=== PATIENT | female | born 1980 | race Hispanic/Latino ===

== ENCOUNTER 2018-05-01 19:51 | Emergency (ER) | payer SELFPAY ==
--- NOTE | 2018-05-01 21:06 | EDPHYS ---
Physician Documentation [facility] Name: Lourdes Garner Age: 37 yrs Sex: Female : 1980 Arrival Date: 05/01/2018 Time: 19:52 Bed 27 Private MD: ED Physician Teodoro Omer HPI: 05/01 20:45 This 37 yrs old Female presents to ER via Ambulatory with complaints of Flu cp Symptoms. 20:45 The patient or guardian reports cough, that is intermittent, flu symptoms, low-grade cp fever, body aches, headache. 20:45 Onset: The symptoms/episode began/occurred today. Associated signs and symptoms: cp Pertinent positives: rhinorrhea, sore throat, Pertinent negatives: diarrhea, vomiting. 20:45 Patient reports was diagnosed with flu yesterday. 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 - Social history:: Smoking status: Patient/guardian denies using tobacco. - Ebola Screening: : No symptoms or risks identified at this time. ROS: 20:55 Constitutional: Positive for body aches, Negative for fever, poor PO intake. cp 20:55 Eyes: Negative for injury, pain, redness, and discharge. cp 20:55 ENT: Positive for rhinorrhea, sore throat, Negative for drainage from ear(s), ear pain, difficulty swallowing, difficulty handling secretions. 20:55 Cardiovascular: Negative for chest pain. 20:55 Respiratory: Positive for cough, with no reported sputum, Negative for wheezing. 20:55 Abdomen/GI: Negative for abdominal pain, vomiting, diarrhea, constipation. 20:55 : Negative for urinary symptoms. 20:55 Skin: Negative for cellulitis, rash. 20:55 Neuro: Positive for headache, Negative for altered mental status, weakness. 20:55 All other systems are negative. Exam: 20:57 Constitutional: The patient appears in no acute distress, alert, awake, non-toxic, well cp developed, well nourished. 20:57 Head/Face: Normocephalic, atraumatic. cp 20:57 Eyes: Periorbital structures: appear normal, Conjunctiva: normal, no exudate, no injection, Lids and lashes: appear normal, bilaterally. 20:57 ENT: External ear(s): are unremarkable, Ear canal(s): are normal, clear, TM's: bulging, is not appreciated, bilaterally, erythema, is not appreciated, bilaterally, Nose: nasal drainage, that is clear, Mouth: Lips: moist, Oral mucosa: moist, Posterior pharynx: Airway: no evidence of obstruction, patent, Tonsils: are normal in appearance, swelling, is not appreciated, erythema, that is mild, exudate, is not appreciated. 20:57 Neck: ROM/movement: is normal, is supple, without pain, no range of motions limitations, no meningismus, no nuchal rigidity. 20:57 Chest/axilla: Inspection: normal, Palpation: is normal, no crepitus, no tenderness. 20:57 Cardiovascular: Rate: normal, Rhythm: regular. 20:57 Respiratory: the patient does not display signs of respiratory distress, Respirations: normal, no use of accessory muscles, no retractions, no splinting, no tachypnea, labored breathing, is not present, Breath sounds: are clear throughout, no decreased breath sounds, no stridor, no wheezing. 20:57 Abdomen/GI: Inspection: abdomen appears normal. 20:57 Skin: cellulitis, is not appreciated, no rash present. Vital Signs: 20:05 BP 144 / 78; Pulse 87; Resp 18; Temp 98.4(O); Pulse Ox 99% on R/A; Weight 93.44 kg (R); lp1 Height 5 ft. 4 in. (162.56 cm); Pain 7/10; 21:01 BP 140 / 75; Pulse 85; Resp 18; Pulse Ox 99% on R/A; ca1 20:05 Body Mass Index 35.36 (93.44 kg, 162.56 cm) lp1 MDM: 20:40 Patient medically screened. cp 21:00 Differential Diagnosis: Bronchitis Influenza Upper Respiratory Infection Pharyngitis cp Otitis Media. 21:05 Data reviewed: vital signs, nurses notes, lab test result(s), and as a result, I will cp discharge patient. 21:05 Counseling: I had a detailed discussion with the patient and/or guardian regarding: the cp historical points, exam findings, and any diagnostic results supporting the discharge/admit diagnosis, lab results, to return to the emergency department if symptoms worsen or persist or if there are any questions or concerns that arise at home. Response to treatment: the patient's symptoms have mildly improved after treatment, and as a result, I will discharge patient. 05/01 20:07 Order name: Flu lp1 05/01 20:10 Order name: Strep lp1 05/01 20:54 Order name: Throat Culture EDMS Administered Medications: 20:55 Drug: Zofran 4 mg Route: PO; ca1 21:22 Follow up: Response: Nausea is decreased rv 20:57 Drug: Tylenol 1000 mg Route: PO; ca1 21:22 Follow up: Response: Temperature is decreased rv 21:20 Drug: Tamiflu 75 mg Route: PO; rv 21:20 Follow up: Response: Medication administered at discharge. rv Disposition: 05/01/18 21:05 Discharged to Home. Impression: Flu like illness. - Condition is Stable. - Discharge Instructions: Influenza, Adult. - Prescriptions for Zofran 4 mg Oral Tablet - take 1 tablet by ORAL route every 12 hours As needed; 20 tablet. Tamiflu 75 mg Oral Capsule - take 1 tablet by ORAL route every 12 hours for 5 days; 10 tablet. - Medication Reconciliation Form, Thank You Letter, Antibiotic Education, Prescription Opioid Use form. - Follow up: Private Physician; When: 2 - 3 days; Reason: Worsening of condition. - Problem is new. - Symptoms have improved. Addendum: 05/04/2018 07:20 Co-signature as Attending Physician, Teodoro Omer MD I agree with the assessment and c escalera plan of care. Signatures: Dispatcher [employer] EDOH Teodoro Omer MD MD cha Pena, Laura RN RN lp1 Teodoro Underwood PA PA cp Vicente, Ronaldo, RN RN rv Deanna Herrera RN RN ca1 Corrections: (The following items were deleted from the chart) 05/01 21:25 21:05 05/01/2018 21:05 Discharged to Home. Impression: Flu like illness. Condition is ca1 Stable. Forms are Medication Reconciliation Form, Thank You Letter, Antibiotic Education, Prescription Opioid Use. Follow up: Private Physician; When: 2 - 3 days; Reason: Worsening of condition. Problem is new. Symptoms have improved. cp
--- NOTE | 2018-05-01 21:06 | ER ---
Nurse's Notes [facility] Name: Lourdes Garner Age: 37 yrs Sex: Female : 1980 Arrival Date: 05/01/2018 Time: 19:52 Bed 27 Private MD: Diagnosis: Flu like illness Presentation: 05/01 20:03 Presenting complaint: Patient states: was diagnosed for the flu yesterday, "I'm lp1 worried I may have the flu"; body aches, headache, nausea, vomited x 1, diarrhea that began today;. Transition of care: patient was not received from another setting of care. Onset of symptoms was May 01, 2018. Risk Assessment: Do you want to hurt yourself or someone else? Patient reports no desire to harm self or others. Initial Sepsis Screen: Does the patient meet any 2 criteria? No. Patient's initial sepsis screen is negative. Does the patient have a suspected source of infection? No. Patient's initial sepsis screen is negative. Care prior to arrival: None. 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 - Social history:: Smoking status: Patient/guardian denies using tobacco. - Ebola Screening: : No symptoms or risks identified at this time. Screenin:07 Abuse screen: Denies threats or abuse. Denies injuries from another. Nutritional lp1 screening: No deficits noted. Tuberculosis screening: No symptoms or risk factors identified. Fall Risk None identified. Assessment: 20:10 General: Appears in no apparent distress. comfortable, Behavior is calm, appropriate ca1 for age. Pain: Complains of pain in throat Pain currently is 4 out of 10 on a pain scale. Neuro: Level of Consciousness is awake, alert, obeys commands, Oriented to person, place, time, situation. Cardiovascular: Heart tones S1 S2 present Capillary refill < 3 seconds Patient's skin is warm and dry. Respiratory: Reports cough that is non-productive, Airway is patent Respiratory effort is even, unlabored, Respiratory pattern is regular, symmetrical, Breath sounds are clear bilaterally. GI: Abdomen is flat, non-distended, Bowel sounds present X 4 quads. Abd is soft and non tender X 4 quads. Reports nausea. : No signs and/or symptoms were reported regarding the genitourinary system. EENT: No signs and/or symptoms were reported regarding the EENT system. Derm: Skin is intact, is healthy with good turgor, Skin is pink, warm \\T\\ dry. Musculoskeletal: Circulation, motion, and sensation intact. Capillary refill < 3 seconds. 21:01 Reassessment: Patient appears in no apparent distress at this time. Patient and/or ca1 family updated on plan of care and expected duration. Pain level reassessed. Patient is alert, oriented x 3, equal unlabored respirations, skin warm/dry/pink. Vital Signs: 20:05 BP 144 / 78; Pulse 87; Resp 18; Temp 98.4(O); Pulse Ox 99% on R/A; Weight 93.44 kg (R); lp1 Height 5 ft. 4 in. (162.56 cm); Pain 7/10; 21:01 BP 140 / 75; Pulse 85; Resp 18; Pulse Ox 99% on R/A; ca1 20:05 Body Mass Index 35.36 (93.44 kg, 162.56 cm) lp1 ED Course: 19:52 Patient arrived in ED. es 20:04 Triage completed. lp1 20:05 Arm band placed on right wrist. lp1 20:10 Patient has correct armband on for positive identification. Bed in low position. Call ca1 light in reach. Side rails up X 1. Pulse ox on. NIBP on. Warm blanket given. 20:40 Teodoro Underwood PA is PHCP. cp 20:40 Teodoro Omer MD is Attending Physician. cp 20:52 Deanna Herrera RN is Primary Nurse. ca1 21:24 No provider procedures requiring assistance completed. Patient did not have IV access ca1 during this emergency room visit. Administered Medications: 20:55 Drug: Zofran 4 mg Route: PO; ca1 21:22 Follow up: Response: Nausea is decreased rv 20:57 Drug: Tylenol 1000 mg Route: PO; ca1 21:22 Follow up: Response: Temperature is decreased rv 21:20 Drug: Tamiflu 75 mg Route: PO; rv 21:20 Follow up: Response: Medication administered at discharge. rv Outcome: 21:05 Discharge ordered by . cp 21:24 Discharged to home ambulatory. ca1 21:24 Condition: stable 21:24 Discharge instructions given to patient, Instructed on discharge instructions, follow up and referral plans. medication usage, Demonstrated understanding of instructions, follow-up care, medications, Prescriptions given X 2. 21:25 Patient left the ED. ca1 Signatures: Luz Marina Bernal Laura, RN RN lp1 Teodoro Underwood PA PA Steven Erwin RN RN rv Actru, LINDSEY Huerta RN ca1
[2018-05-01] MEDS ORDERED: ACETAMINOPHEN 500 MG TAB ONE (21:07)
[2018-05-01] MEDS ORDERED: ONDANSETRON 4 MG (ODT) TAB ONE (21:08)
[2018-05-01] MEDS ORDERED: OSELTAMIVIR 75 MG CAP ONE (21:30)
== END 2018-05-01 21:25 | disposition home or self-care (01) ==
LOC: ER 19:51
DX: J11.1 Influenza due to unidentified influenza virus with other respiratory manifestations (principal); Z88.0 Allergy status to penicillin
CPT/HCPCS: 87070; 87081; 87804; 99283